=== PATIENT | male | born 1960 | race Caucasian/White ===

== ENCOUNTER 2020-01-14 12:01 | Emergency (ER) | payer MEDICARE, SELFPAY ==
[2020-01-14 12:18] VITALS: BP 127/90; PULSE 81; RESP 16; TEMP 36.8; O2SAT 98
--- NOTE | 2020-01-14 13:05 | ED.EXTPRO ---
HPI - Extremity Problem General Chief complaint: Extremity Injury, Lower Stated complaint: Left leg Swelling Time Seen by Provider: 01/14/20 12:58 Source: patient and RN notes reviewed Mode of arrival: ambulatory Limitations: no limitations History of Present Illness HPI Narrative: Patient presents today complaint of a 3-day history of left knee pain. Denies injury or trauma. Denies repetitive motions, but states he does do stair walking and squats to stay in shape. Denies numbness or tingling in the extremities. Pain does not increase with range of motion while he is sitting down. Pain slightly increases when he is walking. Currently rates his pain 7/10 and has been taking Tylenol without relief. He is unable to take ibuprofen due to chronic kidney disease. Reports he does feel some swelling in the posterior knee. MD Complaint: extremity pain Related Data Home Medications Medication Instructions Recorded Confirmed olanzapine 20 mg DAILY 04/29/19 04/29/19 pravastatin 40 mg DAILY 04/29/19 04/29/19 Allergies Allergy/AdvReac Type Severity Reaction Status Date / Time Penicillins Allergy Unknown RASH Verified 04/29/19 18:17 Review of Systems Review of Systems: Narrative: CONSTITUTIONAL: Denies body aches, fever, chills, or sweats. EYES: Denies visual changes, redness, or discharge. ENT: Denies rhinorrhea, congestion, sore throat, or otalgia. CARDIOVASCULAR: Denies chest pain, palpitations, or edema. RESPIRATORY: Denies cough or dyspnea. GASTROINTESTINAL: Denies abdominal pain, nausea, vomiting, or diarrhea. GENITOURINARY: Denies dysuria or hematuria. SKIN: Denies rash, itching, or wounds. MUSCULOSKELETAL: Denies back pain, or myalgia. + Left knee pain and swelling NEUROLOGIC: Denies headache, numbness, tingling, or weakness. PSYCH: Denies depression or anxiety. ON LICENSE OF [facility] Past Medical History Medical History (Updated 01/14/20 @ 13:27 by CARMEL Verduzco, ) Bipolar disorder Chronic kidney disease Social History Social History Smoking status: Never smoker Alcohol intake: never Gender identity (if verbalized by the patient): Male Comments At time of signature, I have reviewed and agree with nursing past medical, surgical, social and family history unless otherwise noted. Please see nursing chart for further information. There is no relevant family history pertinent to the presenting complaint Exam Narrative: Exam Narrative: GENERAL: Well-appearing, well-nourished, and in no acute distress. HEAD: Normocephalic, atraumatic. EYES: EOMI. No redness or drainage. Conjunctivae normal. ENT: Mucous membranes pink and moist. NECK: Normal AROM. CHEST: No respiratory distress. EXTREMITIES: Left knee: Mild tenderness to the upper lateral joint line without edema noted. Mild tenderness posteriorly with mild edema noted. No bony tenderness about the knee. No abnormal patellar movement. No patellar tendon tenderness. Distal sensation intact. Capillary refill normal. Color normal. Full AROM without increased pain. SKIN: Warm, dry, no rash. Capillary refill normal. Normal skin turgor. NEURO: No focal deficits. Alert and oriented x3. Gait steady. PSYCH: Normal affect. No signs of depression or anxiety. Course Vital Signs Vital signs: Vital Signs Temperature 98.3 F 01/14/20 12:18 Pulse Rate 81 01/14/20 12:18 Respiratory Rate 16 01/14/20 12:18 Blood Pressure 127/90 01/14/20 12:18 Pulse Oximetry 98 01/14/20 12:18 Temperature 98.3 F 01/14/20 12:18 Pulse Rate 81 01/14/20 12:18 Respiratory Rate 16 01/14/20 12:18 Blood Pressure 127/90 01/14/20 12:18 Pulse Oximetry 98 01/14/20 12:18 Reviewed. Pt has been instructed to follow up with his PCP regarding his elevated blood pressure today. MDM - Extremity (Nontraumatic) Differential Diagnosis Differential diagnosis: Likely other (Osteoarthritis, knee effusion, bu
== END 2020-01-14 13:13 | disposition home or self-care (01) ==
PROVIDERS: Emergency Provider Nurse Practitioner; PCP Family Medicine
DX: M17.12 Unilateral primary osteoarthritis, left knee (principal); E78.00 Pure hypercholesterolemia, unspecified; N18.9 Chronic kidney disease, unspecified
CPT/HCPCS: 29515; 99213; G0463

== ENCOUNTER 2022-12-27 09:04 | Emergency (ER) | payer MEDICARE, SELFPAY ==
--- NOTE | ~2022-12-27 | XR_ITS ---
EXAMINATION: XR knee LT min 4V DATE: 12/27/2022 09:42 INDICATION: Left knee pain. TECHNIQUE: 4 views of left knee were obtained. COMPARISON: Left knee radiographs 06/09/2015 FINDINGS: Bone alignment is normal. No fracture. There is mild tricompartmental osteoarthritis. No kn ee joint effusion. IMPRESSION: 1. Mild left knee osteoarthritis. Reviewed, dictated and finalized at location A.
--- NOTE | ~2022-12-27 | US_ITS ---
EXAMINATION:US venous doppler LE INDICATION:Left leg pain and swelling. History of DVT. TECHNIQUE: Multiple grayscale, color flow and Doppler images of the left lower extremity deep venous systems were obtained and reviewed. COMPARISON:Ultrasound dated 12/07/2021 FINDINGS: There is deep venous thrombosis of the left common femoral and femoral veins. The remainder of the left lower extremity veins are patent with normal flow and compressibility. IMPRESSION: 1: Deep venous thrombosis of the left common femoral and femoral veins. Reviewed, dictated and finalized at location B.
[2022-12-27 09:23] VITALS: BP 123/83; PULSE 75; RESP 18; TEMP 36.6; O2SAT 100
--- NOTE | 2022-12-27 10:07 | ED.LOWEXIN ---
HPI - Extremity Injury (Lower) General Chief Complaint: Extremity Injury, Lower Stated Complaint: left leg edema Time Seen by Provider: 12/27/22 09:27 Source: patient Mode of arrival: ambulatory Limitations: no limitations History of Present Illness HPI Narrative: This is a 62 year old male that presents to the ER for left leg swelling and pain. Ongoing over the last couple of days. Reports history of DVT and he was concerned that may be what was going on. Reports the pain is in his knee and radiates into his calf. No known recent injury or trauma. Denies fever, or erythema. Related Data Home Medications Medication Instructions Recorded Confirmed olanzapine 20 mg tablet 20 mg DAILY 04/29/19 04/29/19 pravastatin 40 mg tablet 40 mg DAILY 04/29/19 04/29/19 Allergies Allergy/AdvReac Type Severity Reaction Status Date / Time Penicillins Allergy Unknown RASH Verified 12/27/22 09:23 Review of Systems Review of Systems: CONSTITUTIONAL: Denies fever SKIN: Denies rash MUSCULOSKELETAL: Reports joint pain, and myalgia. NEUROLOGIC: Denies numbness All systems reviewed & are unremarkable except as noted in HPI and below PMFSH Past Medical History Medical History (Updated 12/27/22 @ 11:18 by Florence Hinojosa PA-C) Bipolar disorder Chronic kidney disease Family History Family History Other Family history of coronary artery disease Family history of osteoarthritis Hypertension Social History Social History Smoking status: Never smoker Alcohol intake: never Gender identity (if verbalized by the patient): Male Exam Narrative: GENERAL: Well-appearing, well-nourished, and in no acute distress. HEAD: Normocephalic, atraumatic. EYES: EOMI. CHEST: No respiratory distress. HEART: Regular rate EXTREMITIES: Normal range of motion. No erythema. Mild non-pitting edema to the left calf. Normal DP pulse. Normal sensation SKIN: Warm, dry, no rash. NEURO: No focal deficits. Alert and oriented x3. PSYCH: Normal mood and affect Course Course Emergency Course: Patient and family updated on work-up and agree with plan of care Consultations Consultation #1: Spoke with PCPs nurse who will inform provider of patient's DVT Date: 12/27/22 Vital Signs Vital signs: Vital Signs Temperature 97.8 F 12/27/22 09:23 Pulse Rate 75 12/27/22 09:23 Respiratory Rate 18 12/27/22 09:23 Blood Pressure 123/83 12/27/22 09:23 Pulse Oximetry 100 12/27/22 09:23 Oxygen Delivery Room Air 12/27/22 09:23 Temperature 97.8 F 12/27/22 09:23 Pulse Rate 75 12/27/22 09:23 Respiratory Rate 18 12/27/22 09:23 Blood Pressure 123/83 12/27/22 09:23 Pulse Oximetry 100 12/27/22 09:23 Oxygen Delivery Room Air 12/27/22 09:23 MDM - Extremity Injury (Lower) MDM Narrative Medical decision making narrative: Patient presents to the emergency department for left knee pain. Also reporting left lower extremity swelling and history of DVT. He is afebrile and nontoxic-appearing. He denies any chest pain or shortness of breath. Oxygen saturation is normal on room air. He is not tachycardic. Left knee x-ray shows mild osteoarthritis. The left lower extremity venous Doppler with evidence of DVT in the left common femoral and femoral veins. Patient will be started on Eliquis and instructed to have follow-up with primary provider. He was given warnings to return to the ER Differential Diagnosis Differential diagnosis: Likely acute internal derangement of knee and other (DVT, Feliciano's cyst, osteoarthritis) Imaging Data Radiologist's impression: ITS Impressions Knee X-Ray 12/27/22 09:52 IMPRESSION: 1. Mild left knee osteoarthritis. Venous Doppler Study 12/27/22 10:47 IMPRESSION: 1: Deep venous thrombosis of the left common femoral and femoral veins. Critical
[2022-12-27] MEDS: ACETAMINOPHEN 500 MG TABLET 1000 MG PO (10:14)
[2022-12-27 12:29] VITALS: BP 148/90; PULSE 73; RESP 20; TEMP 36.8; O2SAT 96
== END 2022-12-27 12:32 | disposition home or self-care (01) ==
PROVIDERS: Emergency Provider Physician Assistant; PCP Family Medicine
DX: I82.412 Acute embolism and thrombosis of left femoral vein (principal)
CPT/HCPCS: 73564; 93971; 99283; A9270

== ENCOUNTER 2023-01-14 12:01 | Emergency (ER) | payer MEDICARE, SELFPAY ==
[2023-01-14 12:12] VITALS: BP 109/76; PULSE 89; RESP 18; TEMP 36.6; O2SAT 100
--- NOTE | 2023-01-14 13:08 | ED.DENTAL ---
HPI - Dental/Oral General Chief complaint: Dental/Oral Stated complaint: face swollen left side Time Seen by Provider: 01/14/23 13:03 Source: patient and RN notes reviewed Mode of arrival: ambulatory Limitations: no limitations History of Present Illness HPI Narrative: Patient presents today complaining of left upper dental pain and facial swelling was present when he woke up this morning. Currently rates his pain 7/10 and has been taking Tylenol with mild relief. States he does have a dentist but has not yet called to make an appointment. Related Data Home Medications Medication Instructions Recorded Confirmed olanzapine 20 mg tablet 20 mg DAILY 04/29/19 04/29/19 pravastatin 40 mg tablet 40 mg DAILY 04/29/19 04/29/19 famotidine 20 mg tablet mg 01/14/23 tamsulosin 0.4 mg capsule mg PO 01/14/23 Allergies Allergy/AdvReac Type Severity Reaction Status Date / Time Penicillins Allergy Unknown RASH Verified 01/14/23 12:11 Review of Systems Review of Systems: CONSTITUTIONAL: Denies body aches, fever, chills, or sweats. EYES: Denies visual changes, redness, or discharge. ENT: Denies rhinorrhea, congestion, sore throat, or otalgia.+ tooth pain and facial swelling CARDIOVASCULAR: Denies chest pain, palpitations, or edema. RESPIRATORY: Denies cough or dyspnea. GASTROINTESTINAL: Denies abdominal pain, nausea, vomiting, or diarrhea. GENITOURINARY: Denies dysuria or hematuria. SKIN: Denies rash, itching, or wounds. MUSCULOSKELETAL: Denies back pain, joint pain, or myalgia. NEUROLOGIC: Denies headache, numbness, tingling, or weakness. PSYCH: Denies depression or anxiety. [facility] Past Medical History Medical History Bipolar disorder Chronic kidney disease Family History Family History Other Family history of coronary artery disease Family history of osteoarthritis Hypertension Social History Social History Smoking status: Never smoker Alcohol intake: never Gender identity (if verbalized by the patient): Male Comments At time of signature, I have reviewed and agree with nursing past medical, surgical, social and family history unless otherwise noted. Please see nursing chart for further information. There is no relevant family history pertinent to the presenting complaint Exam Narrative: GENERAL: Well-appearing, well-nourished, and in no acute distress. HEAD: Normocephalic, atraumatic. EYES: EOMI. No redness or drainage. Conjunctivae normal. ENT: Mucous membranes pink and moist. Scattered dental caries. Many teeth are broken off at the gumline and are brown in color. Gumline adjacent to teeth 9 through 11 is erythematous and mildly swollen. No obvious periapical abscess. Patient has [id number] left facial swelling. No trismus. NECK: Normal AROM. CHEST: No respiratory distress. EXTREMITIES: Normal range of motion. No edema. SKIN: Warm, dry, no rash. Capillary refill normal. Normal skin turgor. NEURO: No focal deficits. Alert and oriented x3. Gait steady. PSYCH: Normal affect. No signs of depression or anxiety. Course Course Level of Care: Express Care Visit Vital Signs Vital signs: Vital Signs Temperature 98 F 01/14/23 12:12 Pulse Rate 89 01/14/23 12:12 Respiratory Rate 18 01/14/23 12:12 Blood Pressure 109/76 01/14/23 12:12 Pulse Oximetry 100 01/14/23 12:12 Oxygen Delivery Room Air 01/14/23 12:12 Temperature 98 F 01/14/23 12:12 Pulse Rate 89 01/14/23 12:12 Respiratory Rate 18 01/14/23 12:12 Blood Pressure 109/76 01/14/23 12:12 Pulse Oximetry 100 01/14/23 12:12 Oxygen Delivery Room Air 01/14/23 12:12 Reviewed MDM - Dental/Oral MDM Narrative Medical decision making narrative: Will treat patient with a course of clindamycin and a short cour
== END 2023-01-14 13:16 | disposition home or self-care (01) ==
PROVIDERS: Emergency Provider Nurse Practitioner; PCP Family Medicine
DX: K04.7 Periapical abscess without sinus (principal); N18.9 Chronic kidney disease, unspecified; Z79.899 Other long term (current) drug therapy
CPT/HCPCS: 99213; G0463

== ENCOUNTER 2023-03-24 10:31 | Emergency (ER) | payer MEDICARE, SELFPAY ==
[2023-03-24 10:49] VITALS: BP 111/75; PULSE 101; RESP 16; TEMP 36.4; O2SAT 99
--- NOTE | 2023-03-24 11:06 | ED.DENTAL ---
HPI - Dental/Oral General Chief complaint: Dental/Oral Stated complaint: left side tooth pain Source: patient, RN notes reviewed and old records reviewed Mode of arrival: ambulatory Limitations: no limitations History of Present Illness HPI Narrative: 62-year-old male patient presents to Express Care with complaint of left upper dental pain with facial swelling this started yesterday. Patient states has history of dental issues but is not scheduled to see the dentist until April. Patient has not taken any medications. MD Complaint: tooth pain Location: Tooth # (14) Severity: moderate Related Data Home Medications Medication Instructions Recorded Confirmed olanzapine 20 mg tablet 20 mg DAILY 04/29/19 03/24/23 pravastatin 40 mg tablet 40 mg DAILY 04/29/19 03/24/23 famotidine 20 mg tablet mg 01/14/23 tamsulosin 0.4 mg capsule 0.4 mg PO EVERY OTHER DAY 01/14/23 03/24/23 Allergies Allergy/AdvReac Type Severity Reaction Status Date / Time Penicillins Allergy Unknown RASH Verified 03/24/23 10:52 Review of Systems Constitutional: Constitutional: Reports no additional constitutional complaints, Denies chills and Denies fever(s) Eyes: Eyes: Reports no additional eye complaints ENT: Reports as per HPI, Reports dental pain, Reports facial pain and Reports mouth pain Cardiovascular: Cardiovascular: Reports no additional cardiovascular complaints Respiratory: Respiratory: Reports no additional respiratory complaints Neurologic: Reports system reviewed and no additional complaints, except as documented PMFSH Past Medical History Medical History Bipolar disorder Chronic kidney disease Family History Family History Other Family history of coronary artery disease Family history of osteoarthritis Hypertension Social History Social History Smoking status: Never smoker Alcohol intake: never Gender identity (if verbalized by the patient): Male Comments At the time of my signature, I reviewed and agree with the nursing past medical, surgical, social, and family history. There is no relevant family history pertinent to the patient complaint. Exam Const: General: cooperative, healthy appearing, no acute distress and well nourished Nutritional Appearance: well nourished Orientation/consciousness: patient oriented x3 Limitations: no limitations HENMT: Head: normal to inspection and normocephalic Ears: external ears normal, TM's normal bilaterally, mastoids normal and Abnormal EAC present Face/Nose/Sinus: edema ( left facial swelling noted) Face and sinus: normal facial exam, no ecchymosis and no erythema Mouth: Yes Normal oral and palatal mucosa present, Yes oropharynx normal and Yes moist mucous membranes Teeth and gingiva: abnormal tooth and associated gingiva, caries ( patient has multiple broken teeth and decay) and gingiva abnormal edematous, diffusely erythematous and tender Throat: posterior oropharynx normal, tonsils normal, uvula midline and no uvular edema Eyes: General: appearance normal, both eyes and all related structures Sclera: sclerae normal Pupils: Equal, round and reactive pupils present Resp: Effort & Inspection: normal respiratory effort, able to speak in complete sentences, no audible wheezes, no cough, no respiratory distress and no retractions Auscultation: clear to auscultation bilaterally, no crackles, no rales, no rhonchi and no wheezes Cardio: Rate: regular rate Rhythm: regular rhythm Skin: General skin exam: normal color and no rashes or lesions noted Neuro: General: patient oriented x3 Cranial nerves: Yes Equal, round and reactive pupils present Psych: Appearance: grossly normal Course Course Emergency Course: Some parts of this dictation were generated by voice recognition software an
== END 2023-03-24 11:20 | disposition home or self-care (01) ==
PROVIDERS: Emergency Provider Registered Nurse; PCP Family Medicine
DX: K04.7 Periapical abscess without sinus (principal); N18.9 Chronic kidney disease, unspecified
CPT/HCPCS: 99213; G0463

== ENCOUNTER 2023-08-13 09:57 | Emergency (ER) | payer MEDICARE, SELFPAY ==
[2023-08-13] VITALS (20 sets, daily range): BP systolic 116–143; BP diastolic 83–96; PULSE 55–94; RESP 11–23; TEMP 36.4; O2SAT 98–100
--- NOTE | ~2023-08-13 | XR_ITS ---
XR chest 2V DATE: 08/13/2023 11:32 INDICATION: Hemoptysis TECHNIQUE: AP and lateral views COMPARISON: August 13, 2023 CTA chest 06/30/2015 2 view chest FINDINGS: Normal heart size. No hilar or mediastinal enlargement. The lungs appear mildly hyperinflated but clear of infiltrate or consolidation. No pleural effusion o r pulmonary vascular congestion or pneumothorax. Included skeletal structures are unremarkable. IMPRESSION: No active cardiopulmonary disease Reviewed, dictated and finalized at location A.
--- NOTE | ~2023-08-13 | US_ITS ---
US venous doppler LE DATE: 08/13/2023 12:07 INDICATION: Left leg pain. History of deep venous thrombosis. TECHNIQUE: Real-time and color flow imaging and Doppler analysis of the veins of the left or extremit y COMPARISON: 12/27/2022 venous duplex examination of the left lower extremity FINDINGS: There is thrombus within the left greater saphenous vein. There is likely chronic thrombus identified in the left common femoral and femoral and popliteal veins, with incomplete compression, w ith loss of phasicity. Normal flow in the posterior tibial and peroneal veins. IMPRESSION: Partial thrombosis, possibly chronic, involving left greater saphenous, common femoral, f emoral and popliteal veins Reviewed, dictated and finalized at Location A. Reviewed, dictated and finalized at location A. IMPRESSION: Partial thrombosis, possibly chronic, involving left greater saphen ous, common femoral, femoral and popliteal veins
--- NOTE | ~2023-08-13 | CT_ITS ---
EXAMINATION: CTA chest PE protocol DATE: 08/13/2023 11:27 INDICATION: Hemoptysis. History of blood clots. TECHNIQUE: Computed tomography angiography (CTA) of the chest was performed with 100 mL Omnipaque-350 intravenous contrast timed to evaluate the pulmonary arteries. Coronal maximum intensity projection 3D-reconstructions were created by the technologist. Automated exposure control and iterative reconst ruction technique were employed. Exam dose: 175.20 mGy-cm total exam DLP. COMPARISON: 06/30/2015 AP and lateral chest FINDINGS: There is diagnostic contrast enhancement of the pulmonary arteries and no evidence of pulmo nary embolism. No thoracic aortic aneurysm or dissection. Normal heart size. No pericardial or pleural effusion. No hilar or mediastinal mass lesion or lymphadenopathy. No pulmonary infiltrate or consolidation or pulmonary mass lesion. No suspicious osteolytic or osteoblastic lesions. IMPRESSION: No evidence of pulmonary embolism Reviewed, dictated and finalized at Location A. Reviewed, dictated and finalized at location A.
--- NOTE | 2023-08-13 10:27 | ECG_ITS ---
SEE SCANNED COPY FOR CONFIRMED REPORT MTDD
[2023-08-13 10:47] LABS: Basophils Absolute Auto 0.1 K/mm3 (0.0-0.1); Basophils Percent Auto 1.4 % (0.2-1.2); Eosinophils Percent Auto 0.9 % (0-4.4); Hematocrit 40.7 % (42.0-52.0); Hemoglobin 13.4 g/dL (14.0-18.0); Immature Granulocyte Absolute 0.01 K/mm3 (0.00-0.031); Immature Granulocyte Percent A 0.2 % (0-0.5); Lymphocytes Absolute Auto 1.15 K/mm3 (0.9-3.2); Lymphocytes Percent Auto 25.9 % (18.3-44.2); Mean Corpuscular HGB Conc 32.9 g/dl (32-36); Mean Corpuscular Hemoglobin 28.8 pg (26-34); Mean Corpuscular Volume 87.5 fl (80-100); Mean Platelet Volume 9.5 fl (7.4-10.4); Monocytes Absolute Auto 0.4 K/mm3 (0.1-0.6); Monocytes Percent Auto 8.8 % (2.6-8.5); Neutrophils Absolute Auto 2.8 K/mm3 (1.3-6.7); Neutrophils Percent Auto 62.8 % (45.5-73.1); Platelet Count Result 254 k/mm3 (150-375); Red Blood Count 4.65 M/mm3 (4.6-6.20); Red Cell Distribution Width 13.8 % (11.5-14.5); White Blood Count 4.4 K/mm3 (4.5-10.0)
[2023-08-13 10:57] LABS: Alanine Aminotransferase 11 U/L (6-50); Albumin Level 4.7 g/dL (3.5-5.1); Alkaline Phosphatase 82 U/L (38-126); Anion Gap 10 mmol/L (4-12); Aspartate Amino Transferase 16 U/L (17-59); Blood Urea Nitrogen 10 mg/dL (9-20); Calcium 9.8 mg/dL (8.4-10.2); Carbon Dioxide 21 mmol/L (22-30); Chloride 109 mmol/L (98-107); Estimated CRCL calculation 45 ml/min; Estimated Glomerular Filt Rate 56; Glucose 113 mg/dL (65-110); Potassium 3.5 mmol/L (3.4-5.0); Sodium 140 mmol/L (137-145)
--- NOTE | 2023-08-13 11:11 | ED.GENADULT ---
HPI - General Adult General Chief complaint: Unspecified Stated complaint: cough blood, weakness Time Seen by Provider: 08/13/23 10:14 History of Present Illness HPI narrative: 62-year-old male presents to the emergency department for evaluation after some hemoptysis this morning. Patient states he had a couple episodes of coughing and did notice some small drops of blood after he coughed. Patient states the last time he coughed with hemoptysis was approximately 9:00 a.m.. Patient was started on Eliquis in April due to a left lower extremity DVT. Patient states since starting Eliquis his left leg did feel improved over last few days he has had increased left lower leg pain. Related Data Home Medications Medication Instructions Recorded Confirmed olanzapine 20 mg tablet 20 mg DAILY 04/29/19 03/24/23 pravastatin 40 mg tablet 40 mg DAILY 04/29/19 03/24/23 famotidine 20 mg tablet mg 01/14/23 tamsulosin 0.4 mg capsule 0.4 mg PO EVERY OTHER DAY 01/14/23 03/24/23 Allergies Allergy/AdvReac Type Severity Reaction Status Date / Time Penicillins Allergy Unknown RASH Verified 08/13/23 10:07 Review of Systems Review of Systems: All systems reviewed & are unremarkable except as noted in HPI and below PMFSH Past Medical History Medical History Bipolar disorder Chronic kidney disease Family History Family History Other Family history of coronary artery disease Family history of osteoarthritis Hypertension Social History Social History Smoking status: Never smoker Alcohol intake: never Gender identity (if verbalized by the patient): Male Exam Narrative: APPEARANCE: Well appearing, no pain, no distress, well-nourished. HEAD: normocephalic, atraumatic. EYES: PERRLA/EOMI, conjunctivae clear. NOSE: Normal no drainage EARS:TMS clear with good light reflex. THROAT: Pharynx clear, no exudate. NECK: Supple. No adenopathy, no masses. RESPIRATORY: Airway patent, respirations nonlabored. Clear to auscultation bilaterally, no rales, rhonchi, wheezing. CARDIOVASCULAR: Regular rate and rhythm without murmurs rubs or gallops. ABDOMINAL: Soft, nontender, nondistended, normal bowel sounds MUSCULOSKELETAL: Thigh tenderness to palpation, no leg erythema or edema NEURO: Alert. Cranial nerves II through XII intact. Good gait. Good coordination SKIN: Warm, dry. Normal Color Course Vital Signs Vital signs: Vital Signs Temperature 97.5 F L 08/13/23 10:04 Pulse Rate 72 08/13/23 10:04 Respiratory Rate 17 08/13/23 10:04 Blood Pressure 133/85 08/13/23 10:04 Pulse Oximetry 100 08/13/23 10:04 Oxygen Delivery Room Air 08/13/23 10:04 Temperature 97.5 F L 08/13/23 10:04 Pulse Rate 74 08/13/23 13:49 Respiratory Rate 18 08/13/23 13:33 Blood Pressure 128/92 H 08/13/23 13:49 Pulse Oximetry 100 08/13/23 13:33 Oxygen Delivery Room Air 08/13/23 10:04 Medical Decision Making [facility] Narrative Medical decision making narrative: 62-year-old male presenting to the emergency department for evaluation of left leg pain and some hemoptysis. Patient has not have any hemoptysis since 9:00 a.m.. CTA showed no active bleeding and no evidence of pulmonary embolism. Patient is afebrile with no leukocytosis and a stable hemoglobin of 13.4, patient has no acute abnormalities on his CMP patient was negative for influenza RSV and for COVID. Ultrasound of the left leg does show some chronic DVT. Patient family updated the results of the workup patient states he feels improved. Patient's orthostatic vitals were positive, patient was treated with a L of normal saline does feel improved. Patient was able to ambulate and denies any lightheaded or dizziness. Differential Diagnosis Differential Diagnosis: Acute DVT, chronic DVT, pulmon
[2023-08-13 12:51] LABS: Influenza A QL RT-PCR Negative (Negative); Influenza B QL RT-PCR Negative (Negative); RSV RNA, RT-PCR Negative (Negative); SARS-CoV-2 RNA PCR Negative (Negative)
[2023-08-13] MEDS: SODIUM CHLORIDE 0.9% IV 1,000 ML 999 ML IV CONT (13:00)
== END 2023-08-13 14:08 | disposition home or self-care (01) ==
PROVIDERS: Emergency Provider Emergency Medicine; PCP Family Medicine
DX: R04.2 Hemoptysis (principal); I95.1 Orthostatic hypotension; I82.512 Chronic embolism and thrombosis of left femoral vein; I82.532 Chronic embolism and thrombosis of left popliteal vein; I82.592 Chronic embolism and thrombosis of other specified deep vein of left lower extremity; Z20.822 Contact with and (suspected) exposure to COVID-19; N18.9 Chronic kidney disease, unspecified; F31.9 Bipolar disorder, unspecified; Z79.01 Long term (current) use of anticoagulants
CPT/HCPCS: 36415; 71046; 71275; 80053; 85025; 87637; 93005; 93971; 96360; 99284; J7030; Q9967

== ENCOUNTER 2024-07-14 12:08 | Emergency (ER) | payer MEDICARE, SELFPAY ==
[2024-07-14] VITALS (41 sets, daily range): BP systolic 126–164; BP diastolic 78–125; PULSE 52–74; RESP 13–25; TEMP 36.6; O2SAT 97–100
--- NOTE | ~2024-07-14 | CT_ITS ---
EXAMINATION: CT brain wo con DATE: 07/14/2024 12:26 INDICATION: Facial weakness. TECHNIQUE: Computed tomography (CT) of the head was performed without intravenous contrast. The mA wa s adjusted according to patient size. Iterative reconstruction technique was employed. The dose-lengt h product was 681.00 mGy-cm. COMPARISON: Head CT 06/06/2015 FINDINGS: There is no intracranial hemorrhage, acute infarction, or abnormal intracranial mass lesion . The ventricles are normal in size. The orbits are normal. There is mild mucosal thickening in the p aranasal sinuses. There are changes of bilateral mastoidectomies. There is extensive dental disease. IMPRESSION: 1. Normal brain. Reviewed, dictated and finalized at location A. IMPRESSION: 1. Normal brain.
--- NOTE | ~2024-07-14 | CT_ITS ---
EXAMINATION: CTA brain carotid DATE: 07/14/2024 12:27 INDICATION: Facial weakness. TECHNIQUE: Computed tomographic angiography (CTA) of the head was performed with 100 mL Omnipaque-350 intravenous contrast. CTA of the neck was performed with intravenous contrast. Automated exposure co ntrol and iterative reconstruction technique were employed. The dose-length product was 946.92 mGy-cm . Maximum intensity projection and volume rendered 3D-reconstructions were created by the [employer] t on a separate workstation. COMPARISON: Head CT 07/14/2024 FINDINGS: HEAD CTA: There is no intracranial hemorrhage, acute infarction, or abnormal intracranial mass lesion . The ventricles are normal in size. The orbits are normal. There is extensive dental disease. There is mild mucosal thickening in the paranasal sinuses. There are bilateral mastoidectomies. Left verteb ral artery is dominant. There is no significant stenosis of basilar artery or the posterior cerebral arteries. There is no significant stenosis of the intracranial internal carotid arteries or anterior or middle cerebral arteries. Anterior communicating artery is normal. The posterior communicating art eries are normal. There is no aneurysm. NECK CTA: There are no pathologically enlarged lymph nodes. There is no significant stenosis of the v ertebral arteries. There is mild plaque in the proximal internal carotid arteries. There is 0% stenos is of the proximal right internal carotid artery relative to normal distal artery lumen diameter (ANN-MARIE CET criteria). There is 0% stenosis of the proximal left internal carotid artery relative to normal d istal artery lumen diameter. There is severe cervical spondylosis. IMPRESSION: 1. Normal brain. No aneurysm or significant intracranial arterial stenosis 2. 0% stenosis of the proximal internal carotid arteries relative to normal distal artery lumen diame ters (NASCET criteria). Reviewed, dictated and finalized at location A. IMPRESSION: 1. Normal brain. No aneurysm or significant intracranial arterial stenosis 2. 0% stenosis of the proximal internal carotid arteries relative to normal dis ankita artery lumen diameters (NASCET criteria).
--- NOTE | ~2024-07-14 | XR_ITS ---
EXAMINATION: XR chest 1V portable DATE: 07/14/2024 12:35 INDICATION: Facial weakness. TECHNIQUE: A single frontal view of the chest was obtained. COMPARISON: Chest 2 views 08/13/2023 FINDINGS: There is no pneumonia, pleural effusion, or pneumothorax. The heart size is normal. IMPRESSION: 1. No acute cardiopulmonary disease. Reviewed, dictated and finalized at location A.
--- OUTSIDE RECORDS SUMMARY | 2024-07-14 12:11 | XMS_ITS ---
Author Organization [facility] Office Address [address] [place] [address] Care Team Providers Care Heavy Equipment Mechanic Name Role Phone JacksonHraiHiren Unavailable [phone] MEDICATIONS Medication SIG (Take, Route, Frequency, Duration) Notes Start Date End Date Status Levothyroxine Sodium 25 MCG 1 tablet in the morning on an empty stomach Orally Once a day for 90 days 07/04/2024 Active SOCIAL HISTORY Sex Assigned At : Social History Observation Description Sex Assigned At Male Encounters Encounter Location Date Provider Diagnosis [facility] [address] [facility] [address] [place] [address] 07/04/2024 Hiren Jackson PLAN OF TREATMENT Medication Medication Name Sig Start Date Stop Date Notes Levothyroxine Sodium 25 MCG 1 tablet in the morning on an empty stomach Orally Once a day for 90 days 07/04/2024 Next Appt Details Provider Name:Hiren Jackson , 09/12/2024 02:30:00 PM, [address] [facility], [facility] [address], [place], [address], Progress Notes * JACOB VIVIANADOB:1960 (6 3 yo M)Acc No.[id number]:07/04/2024 Patient: VIVIANA JAMES :1960 Age:63 Y Sex:Male Address:[address] [place] [address], [id number] * Refills Start Levothyroxine Sodium Tablet, 25 MCG, Orally, 90 Tablet, 1 tablet in the morning on an empty stomach, Once a day, 90 days, Refills=3 * * Date:
--- OUTSIDE RECORDS SUMMARY | 2024-07-14 12:12 | XMS_ITS | Patient Health Record ---
Author Organization [facility] Office Address [address] [place] [address] Care Team Providers Care Locomotive Oiler Name Role Phone Hiren Jackson Unavailable [phone] REASON FOR REFERRAL No Information MEDICATIONS Medication SIG (Take, Route, Frequency, Duration) Notes Start Date End Date Status Potassium Chloride ER 20 MEQ TAKE 1 TABL ET BY MOUTH EVERY DAY WITH FOOD FOR 90 DAYS for 90 Active Tamsulosin HCl 0.4 MG TAKE 1 CAPSULE BY MOUTH TWICE A DAY for 90 Active Levothyroxine Sodium 25 MCG 1 tablet in the morning on an empty stomach Orally Once a day for 90 days 07/04/2024 Active SOCIAL HISTORY Sex Assigned At : Social History Observation Description Sex Assigned At Male PROBLEMS Problem Type ICD Code Onset Dates Problem Status W/U Status Risk SNOMED Code Notes Problem Secondary hyperparathyroid ism, not elsewhere classified (E21.1) Active confirmed Secondary hyperparathyroidism (09957537) Problem Vitamin D deficiency, unspecified (E55.9) Active confirmed Vitamin D defic iency (60054023) Problem Bipolar disorder, unspecified (F31.9) Active confirmed Bipolar disorde r (24011023) Problem Essential (primary) hypertension (I10) Active confirmed Essential hypertension (27160401) Problem 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) Active confirmed Renovascular hypertension (311883235) Problem Renal osteodystrophy (N25.0) Active confirmed Renal osteodyst rophy (12613192) Problem Proteinuria, unspecified (R80.9) Active confirmed Proteinuria (40242160) Problem Abnormal results of thyroid function studies (R94.6) Active confirmed Thyroid functio n tests abnormal (109359147) Problem Chronic kidney disease, stage 3a (N18.31) Active confirmed Chronic kidney disease stage 3A (disorder) (225987128) Encounters Encounter Location Date Provider Diagnosis [facility] [address] [address] 08/24/2023 Hiren Jackson Chronic kidney disea se, stage 3a N18.31 ; Essential (primary) hypertension I10 ; Proteinuria, unspecified R80.9 ; Renal osteodystrophy N25.0 ; Secondary hyperparathyroidism, not elsewhere classified E21.1 and Parkinson's disease G20 [place] [address] [place] [address] 11/23/2023 Hiren Jackson Chronic kidney disea se, stage 3a N18.31 ; Essential (primary) hypertension I10 ; Proteinuria, unspecified R80.9 ; Renal osteodystrophy N25.0 ; Secondary hyperparathyroidism, not elsewhere classified E21.1 and Parkinson's disease G20 [place] [address] [address] 01/25/2024 Hiren Jackson Chronic kidney disea se, stage 3a N18.31 ; Essential (primary) hypertension I10 ; Proteinuria, unspecified R80.9 ; Renal osteodystrophy N25.0 ; Secondary hyperparathyroidism, not elsewhere classified E21.1 and Parkinson's disease G20 [place] [address] [address] 04/04/2024 Hiren Jackson Stage 3 chronic kidn ey disease N18.30 ; Hypertension secondary to other renal disorders I15.1 and Vitamin D deficiency, unspecified E55.9 [place] [address] [address] 07/04/2024 Hiren Jackson Chronic kidney disea se, stage 3a N18.31 ; Essential (primary) hypertension I10 ; Proteinuria, unspecified R80.9 ; Renal osteodystrophy N25.0 ; Secondary hyperparathyroidism, not elsewhere classified E21.1 ; Hypertension secondary to other renal disorders I15.1 ; Vitamin D deficiency, unspecified E55.9 ; Bipolar disorder, unspecified F31.9 and Abnormal results of thyroid function studies R94.6 [facility] [address] [place] [address] 07/04/2024 Hiren Jackson [facility] [address] [place] [address] 08/24/2023 Hiren MILIAN Encounter Date Diagnosis Assessment Notes Treatment Notes Treatment Clinical Notes Section Notes 08/24/2023 Chronic kidney disease, stage 3a (ICD-10 - N18.31) 11/23/2023 Chronic kidney disease, stage 3a (ICD-10 - N18.31) 04/04/2024 Hypertension secondary to other renal disorders (ICD-10 - I15.1) 04/04/2024 Stage 3 chronic kidney disease (ICD-10 - N18.30) 01/25/2024 Chronic kidney disease, stage 3a (ICD-10 - N18.31) 07/04/2024 Chronic kidney disease, stage 3a (ICD-10 - N18.31) 04/04/2024 Vitamin D deficiency, unspecified (ICD-10 - E55.9) 07/04/2024 Essential (primary) hypertension (ICD-10 - I10) 01/25/2024 Essential (primary) hypertension (ICD-10 - I10) 11/23/2023 Essential (primary) hypertension (ICD-10 - I10) 08/24/2023 Essential (primary) hypertension (ICD-10 - I10) 08/24/2023 Proteinuria, unspecified (ICD-10 - R80.9) 11/23/2023 Proteinuria, unspecified (ICD-10 - R80.9) 01/25/2024 Proteinuria, unspecified (ICD-10 - R80.9) 07/04/2024 Proteinuria, unspecified (ICD-10 - R80.9) 07/04/2024 Renal osteodystrophy (ICD-10 - N25.0) 11/23/2023 Renal osteodystrophy (ICD-10 - N25.0) 01/25/2024 Renal osteodystrophy (ICD-10 - N25.0) 08/24/2023 Renal osteodystrophy (ICD-10 - N25.0) 11/23/2023 Secondary hyperparathyroidism , not elsewhere classified (ICD-10 - E21.1) 08/24/2023 Secondary hyperparathyroidism , not elsewhere classified (ICD-10 - E21.1) 01/25/2024 Secondary hyperparathyroidism , not elsewhere classified (ICD-10 - E21.1) 07/04/2024 Secondary hyperparathyroidism , not elsewhere classified (ICD-10 - E21.1) 07/04/2024 Hypertension secondary to other renal disorders (ICD-10 - I15.1) 01/25/2024 Parkinson's disease (ICD-10 - G20) 08/24/2023 Parkinson's disease (ICD-10 - G20) 11/23/2023 Parkinson's disease (ICD-10 - G20) 07/04/2024 Vitamin D deficiency, unspecified (ICD-10 - E55.9) 07/04/2024 Bipolar disorder, unspecified (ICD-10 - F31.9) 07/04/2024 Abnormal results of thyroid function studies (ICD-10 - R94.6) PLAN OF TREATMENT Next Appt Details Provider Name:Hiren Jackson , 09/12/2024 02:30:00 PM, [address] [facility] [address], [address],
--- OUTSIDE RECORDS SUMMARY | 2024-07-14 12:12 | XMS_ITS ---
Author Organization [facility] Office Address [address] [place] [address] Care Team Providers Care Manager Steel Name Role Phone ManuelMaríaHiren Unavailable [phone] MEDICATIONS Medication SIG (Take, Route, Frequency, Duration) Notes Start Date End Date Status Potassium Chloride ER 20 MEQ 1 tablet with food Orally Once a day for 90 days 08/24/2023 05/19/2024 Active Tamsulosin HCl 0.4 MG TAKE 1 CAPSULE BY MOUTH TWICE A DAY for 90 Active SOCIAL HISTORY Sex Assigned At : Social History Observation Description Sex Assigned At Male PROBLEMS Problem Type ICD Code Onset Dates Problem Status W/U Status Risk SNOMED Code Notes Problem 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) Active confirmed Renovascular hypertension (682712097) Problem Vitamin D deficiency, unspecified (E55.9) Active confirmed Vitamin D deficiency (53098535) Encounters Encounter Location Date Provider Diagnosis [place] [facility] [address] [facility] [address] [place] [address] 04/04/2024 Hiren Jackson Stage 3 chronic kidn ey disease N18.30 ; Hypertension secondary to other renal disorders I15.1 and Vitamin D deficiency, unspecified E55.9 ASSESSMENTS Encounter Date Diagnosis Assessment Notes Treatment Notes Treatment Clinical Notes Section Notes 04/04/2024 Stage 3 chronic kidney disease (ICD-10 - N18.30) 04/04/2024 Hypertension secondary to other renal disorders (ICD-10 - I15.1) 04/04/2024 Vitamin D deficiency, unspecified (ICD-10 - E55.9) PLAN OF TREATMENT Next Appt Details Provider Name:Hiren Jackson , 09/12/2024 02:30:00 PM, [address] [facility], [address], [place], [address], Progress Notes * KYLIE JAMES:1960 ([age] yo M)Acc No.[id number]:04/04/2024 Progress Notes Patient: VIVIANA JAMES Provider: MD KRIS, Jeanette.Ruth.C.P, F.A.S.N. :1960 Age:63 Y Sex:Male Date:04/04/2024 Address:[address] [place] [address] Subjective: * Chief Complaints: * * Medical History: * Medications: Taking Potassium Chloride ER 20 MEQ Tablet Extended Release 1 tablet with food Orally Once a day , stop date 05/19/2024, Taking Tamsulosin HCl 0.4 MG Capsule TAKE 1 CAPSULE BY MOUTH TWICE A DAY Objective: Assessment: * Assessment: 1. Stage 3 chronic kidney disease - N18.30 (Primary) 2. Hypertension secondary to other renal disorders - I15.1 3. Vitamin D deficiency, unspecified - E55.9 Plan: * Treatment: * Billing Information: * Visit Code: [id number] Office Visit, Est Pt., Level 4. * Procedure Codes: * Sign off status: Pending * Provider: MD KRIS, Jeanette.Ruth.C.P, F.A.S.N. Date: 04/04/2024
--- OUTSIDE RECORDS SUMMARY | 2024-07-14 12:12 | XMS_ITS ---
Author Organization [facility] Address [address] [place] [address] Care Team Providers Care Rn Oncology Clinical Name Role Phone ManuelHariHiren Unavailable [phone] SOCIAL HISTORY Sex Assigned At : Social History Observation Description Sex Assigned At Male PROBLEMS Problem Type ICD Code Onset Dates Problem Status W/U Status Risk SNOMED Code Notes Problem Bipolar disorder, unspecified (F31.9) Active confirmed Bipolar disorder (27612783) Problem Abnormal results of thyroid function studies (R94.6) Active confirmed Thyroid function tests abnormal (069427908) Encounters Encounter Location Date Provider Diagnosis [place] [facility] 2043 [facility] [address] [place] [address] 07/04/2024 Hiren Jackson Chronic kidney disea se, stage 3a N18.31 ; Essential (primary) hypertension I10 ; Proteinuria, unspecified R80.9 ; Renal osteodystrophy N25.0 ; Secondary hyperparathyroidism, not elsewhere classified E21.1 ; Hypertension secondary to other renal disorders I15.1 ; Vitamin D deficiency, unspecified E55.9 ; Bipolar disorder, unspecified F31.9 and Abnormal results of thyroid function studies R94.6 ASSESSMENTS Encounter Date Diagnosis Assessment Notes Treatment Notes Treatment Clinical Notes Section Notes 07/04/2024 Chronic kidney disease, stage 3a (ICD-10 - N18.31) 07/04/2024 Essential (primary) hypertension (ICD-10 - I10) 07/04/2024 Proteinuria, unspecified (ICD-10 - R80.9) 07/04/2024 Renal osteodystrophy (ICD-10 - N25.0) 07/04/2024 Secondary hyperparathyroidism , not elsewhere classified (ICD-10 - E21.1) 07/04/2024 Hypertension secondary to other renal disorders (ICD-10 - I15.1) 07/04/2024 Vitamin D deficiency, unspecified (ICD-10 - E55.9) 07/04/2024 Bipolar disorder, unspecified (ICD-10 - F31.9) 07/04/2024 Abnormal results of thyroid function studies (ICD-10 - R94.6) PLAN OF TREATMENT Next Appt Details Provider Name:Hiren Manuel , 09/12/2024 02:30:00 PM, 2043 [facility], [facility], [place], [address], Progress Notes * VIVIANA JAMESDOB:1960 ([age] yo M)Acc No.[id number]:07/04/2024 Progress Notes Patient: VIVIANA JAMES Provider: MD KRIS, F.A.C.P, F.A.S.N. :1960 Age:63 Y Sex:Male Date:07/04/2024 Address:[address] [place] [address] Subjective: * Chief Complaints: * * Medical History: Objective: Assessment: * Assessment: 1. Chronic kidney disease, stage 3a - N18.31 (Primary) 2. Essential (primary) hypertension - I10 3. Proteinuria, unspecified - R80.9 4. Renal osteodystrophy - N25.0 5. Secondary hyperparathyroidism, not elsewhere classified - E21.1 6. Hypertension secondary to other renal disorders - I15.1 7. Vitamin D deficiency, unspecified - E55.9 8. Bipolar disorder, unspecified - F31.9 9. Abnormal results of thyroid function studies - R94.6 Plan: * Treatment: * Billing Information: * Visit Code: [id number] Office Visit, Est Pt., Level 5. * Procedure Codes: * Sign off status: Pending * Provider: MD KRIS, F.A.C.P, F.A.S.N. Date: 07/04/2024
--- NOTE | 2024-07-14 12:13 | ECG_ITS ---
Test Date: 2024-07-14 12:30:36 Measurements Intervals [place] Rate: 64 P: 14 AK: 143 QRS: -9 QRSD: 110 T: 46 QT: 405 QTc: 420 Interpretive Statements SINUS RHYTHM INCOMPLETE RIGHT BUNDLE BRANCH BLOCK [90+ ms QRS DURATION, TERMINAL R IN V1/V2, 40+ ms S IN I/aVL/V4/V5/V6] BORDERLINE ECG No previous ECG available for comparison Electronically Signed On 07-14-2024 15:42:33 CDT by Arturo Cameron M.D.
[2024-07-14 12:16] LABS: Glucose Point of Care 147 mg/dl (65-105)
[2024-07-14 12:24] LABS: Basophils Absolute Auto 0.1 K/mm3 (0.0-0.1); Basophils Percent Auto 1.7 % (0.2-1.2); Eosinophils Absolute Auto 0.1 K/mm3 (0-0.3); Eosinophils Percent Auto 1.9 % (0-4.4); Hematocrit 40.5 % (42.0-52.0); Hemoglobin 13.2 g/dL (14.0-18.0); Immature Granulocyte Absolute 0.03 K/mm3 (0.00-0.031); Immature Granulocyte Percent A 0.7 % (0-0.5); Lymphocytes Absolute Auto 1.21 K/mm3 (0.9-3.2); Lymphocytes Percent Auto 29.1 % (18.3-44.2); Mean Corpuscular HGB Conc 32.6 g/dl (32-36); Mean Platelet Volume 9.6 fl (7.4-10.4); Monocytes Absolute Auto 0.4 K/mm3 (0.1-0.6); Monocytes Percent Auto 9.1 % (2.6-8.5); Neutrophils Absolute Auto 2.4 K/mm3 (1.3-6.7); Neutrophils Percent Auto 57.5 % (45.5-73.1); Platelet Count Result 244 k/mm3 (150-375); Red Blood Count 4.55 M/mm3 (4.6-6.20); Red Cell Distribution Width 13.7 % (11.5-14.5); White Blood Count 4.2 K/mm3 (4.5-10.0)
[2024-07-14 12:25] LABS: Estimated Glomerular Filt Rate > 60
[2024-07-14 12:35] LABS: INR 1.1; Prothrombin Time 14.4 Seconds (11.1-14.7)
[2024-07-14 12:52] LABS: Alanine Aminotransferase 14 U/L (6-50); Albumin Level 4.6 g/dL (3.5-5.1); Alkaline Phosphatase 82 U/L (38-126); Anion Gap 12 mmol/L (4-12); Aspartate Amino Transferase 20 U/L (17-59); Bilirubin,Total 0.4 mg/dL (0.2-1.3); Blood Urea Nitrogen 16 mg/dL (9-20); Calcium 9.7 mg/dL (8.4-10.2); Carbon Dioxide 24 mmol/L (22-30); Chloride 104 mmol/L (98-107); Estimated CRCL calculation 57 ml/min; Estimated Glomerular Filt Rate > 60; Glucose 156 mg/dL (65-110); Potassium 4.7 mmol/L (3.4-5.0); Sodium 140 mmol/L (137-145)
[2024-07-14 13:03] LABS: Troponin I < 0.012 ng/mL (0.000-0.034)
--- NOTE | 2024-07-14 13:26 | ED_ITS ---
HPI - Neuro Symptoms/Deficit General Chief Complaint: Suspected CVA Stated Complaint: Facial drooping/left arm tingling x 30 min Time Seen by Provider: 07/14/24 12:21 History of Present Illness HPI Narrative: 63-year-old male with a history of anticoagulation from prior DVT. He is on Eliquis b.i.d. patient presents to the emergency depart with left-sided facial droop and left-sided tingling for approximately 30 minutes duration. Last known well 11:50 a.m.. He woke up in his normal state of health, no symptoms. His noticed that he started having some facial asymmetry and then patient started reporting left arm tingling. Both which have significantly improved since he arrived to the emergency department. He has no facial asymmetry at this time and only mild decrease in sensation to his left upper extremity that ranges from the shoulder to the elbow region but does not go distally. No weakness, no ataxia in the arms or legs, no sensory deficits elsewhere, no visual deficits. NIH Stroke Scale of 1. CT scan CT angiography scan were ordered. Stroke protocol activated. He is already on anticoagulation with Eliquis and does not take any other anticoagulation. No chest pain, back pain, shortness a breath, abdominal pain, nausea, vomiting, vision changes or vertigo. Related Data Home Medications ?Medication ?Instructions ?Recorded ?Confirmed ?Last Taken ?Type olanzapine 20 mg tablet 20 mg DAILY 04/29/19 03/24/23 Unknown History pravastatin 40 mg tablet 40 mg DAILY 04/29/19 03/24/23 Unknown History famotidine 20 mg tablet mg 01/14/23 Unknown History tamsulosin 0.4 mg capsule 0.4 mg PO EVERY OTHER DAY 01/14/23 03/24/23 Unknown History Allergies Allergy/AdvReac Type Severity Reaction Status Date / Time Penicillins Allergy Unknown RASH Verified 07/14/24 14:26 Review of Systems 2 Review of Systems: As reviewed above in HPI [facility] Past Medical History Medical History Bipolar disorder Chronic kidney disease Family History Family History Other Family history of coronary artery disease Family history of osteoarthritis Hypertension Social History Social History Smoking status: Never smoker Alcohol intake: never Gender identity (if verbalized by the patient): Male Exam 2 Narrative: GENERAL: [Well-appearing, well-nourished, and in no acute distress.] HEAD: [Normocephalic, atraumatic.] EYES: [PERRLA and EOMI.] ENT: Nares clear, no rhinorrhea or epistaxis. Mucous membranes moist. Poor dentition NECK: Supple. CHEST: [Clear to auscultation. No respiratory distress.] HEART: [Regular rate and rhythm]. No murmur heard. [Normal peripheral pulses.] ABDOMEN: [Soft, nondistended], [nontender], [No rigidity or guarding] EXTREMITIES: Normal range of motion. [No edema.] SKIN: Warm, dry, no rash. NEURO: [No focal deficits]. Alert and oriented [x3.] NIH stroke scale 1 for subjective paresthesias in the left arm. No facial droop appreciated, no facial asymmetry, slurring of speech, ataxia in the arms or legs, visual deficits. No weakness in the arms or legs, no drift. PSYCH: [Normal mood and affect.] Course Vital Signs Vital signs: Vital Signs Pulse Rate 65 07/14/24 12:10 Respiratory Rate 16 07/14/24 12:10 Blood Pressure 164/83 H 07/14/24 12:10 Pulse Oximetry 99 07/14/24 12:10 Temperature 36.6 C 07/14/24 14:45 Pulse Rate 64 07/14/24 14:45 Respiratory Rate 19 07/14/24 14:45 Blood Pressure 146/86 H 07/14/24 14:45 Pulse Oximetry 100 07/14/24 14:45 MDM - Neuro Symptoms/Deficit MDM Narrative Medical decision making narrative: 63-year-old male with history of hypertension and previous DVT on chronic anticoagulation with Eliquis. Presents today with signs and symptoms of a potential ischemic stroke. Workup in his normal state of health and approximately 11:50 a.m. noticed that he had left-sided facial droop and left- sided numbness in his arm. Came to the ER for evaluation, facial asymmetry has since resolved and his numbness has improved to just subjective pins and needles in his left upper extremity. NIH Stroke Scale of 1 for subjective paresthesias otherwise unremarkable neurological workup. He is slightly hypertensive but not severe range. Normal vital signs otherwise. Stroke was activated and he had a CT scan and CT angiography was head neck. Laboratory studies and cardiac workup was ordered. He is already on anticoagulation with Eliquis and took his morning dose. Not a candidate for thrombolytics therapy based on those risk factors at this time. CT noncontrast shows no acute intracranial hemorrhage. CT angiography shows no acute ischemic disease or occlusive event. Laboratory studies were largely unremarkable. Negative troponin. EKG without any significant findings. No ectopy or arrhythmia. Spoke to the [facility] transfer line as we do not have a neurologist to admit the patient with today. Recommendations to start high-intensity statin, obtain MRI imaging and echocardiogram while he is on a wait list for transfer. They do not have any available beds on Neurology or Neuro tele at this time. Accepting physician is Dr. Dean. Spoke to the hospitalist here currently being covered by the midlevel provider Shirley who will try and see if he can be accepted here pending transfer. Patient and family made aware of the plan and comfortable with current management. Laboratory studies showed no leukocytosis or anemia. Normal platelet count. Normal coagulation panel. Negative troponin, normal glucose, normal LFTs and renal function panel. Chest x-ray without any acute disease. EKG shows sinus rhythm and incomplete right bundle branch block. I went and re-evaluated the patient and he had complete resolution of his symptoms with an NIH stroke scale 0 at this time. I was made aware by the hospitalist team that he can be accepted here pending transfer however upon completion of the orders an MRI imaging being placed I was called by [facility] and they have a bed ready for him so transfer was initiated rather than admission. Patient was made aware of the plan and comfortable with transfer at this time. ALS ambulance was arranged. Patient did receive atorvastatin and currently on Eliquis therapy from the morning. Medical Records Attestation: I reviewed the patient's medical records. Lab Data Attestation: I reviewed the patient's lab results. 07/14/24 12:15 07/14/24 12:21 Labs: Lab Results 07/14/24 07/14/24 07/14/24 Range/Units 12:14 12:15 12:21 WBC 4.2 L (4.5-10.0) K/mm3 RBC 4.55 L (4.6-6.20) M/mm3 Hgb 13.2 L (14.0-18.0) g/dL Hct 40.5 L (42.0-52.0) % MCV 89.0 (80-100) fl MCH 29.0 (26-34) pg MCHC 32.6 (32-36) g/dl RDW 13.7 (11.5-14.5) % Plt Count 244 (150-375) k/mm3 MPV 9.6 (7.4-10.4) fl Immature Gran % (Auto) 0.7 H (0-0.5) % Neut % (Auto) 57.5 (45.5-73.1) % Lymph % (Auto) 29.1 (18.3-44.2) % [place] % (Auto) 9.1 H (2.6-8.5) % Eos % (Auto) 1.9 (0-4.4) % Baso % (Auto) 1.7 H (0.2-1.2) % Lymph # (Auto) 1.21 (0.9-3.2) K/mm3 [place] # (Auto) 0.4 (0.1-0.6) K/mm3 Eos # (Auto) 0.1 (0-0.3) K/mm3 Baso # (Auto) 0.1 (0.0-0.1) K/mm3 Abs Immat Gran (auto) 0.03 (0.00-0.031) K/mm3 Absolute Neuts (auto) 2.4 (1.3-6.7) K/mm3 Absolute Nucleated RBC 0.000 (0.0-0.012) K/mm3 Nucleated RBC % 0.0 (0.0-0.2) % PT 14.4 (11.1-14.7) Seconds INR 1.1 APTT 28.0 (22.3-36.8) Seconds Sodium 140 (137-145) mmol/L Potassium 4.7 (3.4-5.0) mmol/L Chloride 104 (98-107) mmol/L Carbon Dioxide 24 (22-30) mmol/L Anion Gap 12 (4-12) mmol/L BUN 16 (9-20) mg/dL Creatinine 1.13 1.20 (0.7-1.3) mg/dL Estim Creat Clear Calc 57 Not Reportable ml/min Estimated GFR > 60 > 60 (59 - ) Glucose 156 H (65-110) mg/dL POC Capillary Glucose 147 H (65-105) mg/dl Calcium 9.7 (8.4-10.2) mg/dL Total Bilirubin 0.4 (0.2-1.3) mg/dL AST 20 (17-59) U/L ALT 14 (6-50) U/L Alkaline Phosphatase 82 (38-126) U/L Troponin I < 0.012 (0.000-0.034) ng/mL Total Protein 8.0 (6.3-8.2) g/dL Albumin 4.6 (3.5-5.1) g/dL Imaging Data Attestation: I personally reviewed and interpreted this imaging study as follows: My impression: Impressions Head CT 07/14/24 12:36 IMPRESSION: 1. Normal brain. Head/Neck CTA 07/14/24 12:48 IMPRESSION: 1. Normal brain. No aneurysm or significant intracranial arterial stenosis 2. 0% stenosis of the proximal internal carotid arteries relative to normal distal artery lumen diameters (NASCET criteria). Chest X-Ray 07/14/24 12:56 IMPRESSION: 1. No acute cardiopulmonary disease. Critical Care Time Critical Care Time Critical Care Time: Yes Total Critical Care Time: 75 Discharge Plan Discharge Clinical Impression: Transient ischemic attack (TIA) Patient Disposition: Acute Care Hospital Condition: Stable Patient Language: Arabic Prescriptions: No Action pravastatin 40 mg tablet 40 mg DAILY olanzapine 20 mg tablet 20 mg DAILY famotidine 20 mg tablet tamsulosin 0.4 mg capsule 0.4 mg PO EVERY OTHER DAY clindamycin HCl 300 mg capsule 300 mg PO Q6H 10 Days Qty: 40 0RF prednisone 20 mg tablet 40 mg PO DAILY 3 Days Qty: 6 0RF clindamycin HCl 300 mg capsule 300 mg PO Q6H 10 Days Qty: 40 0RF Eliquis DVT-PE Treat 30D Start 5 mg (74 tabs) tablets,dose pack See Rx Instructions .ROUTE .COMPLEX Qty: 74 0RF Rx Instructions: orally per package directions Follow-up/Referrals: Tan,Mandi Carias MD [Primary Care Provider] - Time of Disposition: 16:02 Quality NIHSS Nursing Documentation ED NIHSS nursing documentation: reviewed/agree Stroke Date of last known normal: 07/14/24 Time of last known normal: 11:50 Stroke Scale Stroke Scale 1: Stroke scale date:: 07/14/24 Stroke scale time:: 12:30 1a Level of consciousness: alert-0 1b Level of consciousness questions: answers both correctly-0 1c Level of consciousness commands: obeys both correctly-0 2 Best gaze: normal-0 3 Visual: no visual loss-0 4 Facial palsy: normal-0 5a Motor: left arm: no drift-0 5b Motor: right arm: no drift-0 6a Motor: left leg: no drift-0 6b Motor: right leg: no drift-0 7 Limb ataxia: absent-0 8 Sensory: pinprick less sharp-1 9 Best language: no aphasia-0 10 Dysarthria: normal-0 11 Extinction and inattention: no abnormality-0 Level:: 1
[2024-07-14] MEDS: ATORVASTATIN 40 MG TABLET PO (13:57)
--- NOTE | 2024-07-14 14:20 | P.HP_ITS ---
[facility] Past Medical History Medical History Bipolar disorder Chronic kidney disease Family History Family History Other Family history of coronary artery disease Family history of osteoarthritis Hypertension Social History Social History Smoking status: Never smoker Alcohol intake: never Gender identity (if verbalized by the patient): Male Meds Home Medications and Allergies Home Medications ?Medication ?Instructions ?Recorded ?Confirmed ?Type olanzapine 20 mg tablet 20 mg DAILY 04/29/19 03/24/23 History pravastatin 40 mg tablet 40 mg DAILY 04/29/19 03/24/23 History apixaban 5 mg (74 tabs) tablets in See Rx Instructions PO .COMPLEX 12/27/22 Rx a dose pack (Colibri Heart Valve DVT-PE Treat #74 ea 30D Start) clindamycin HCl 300 mg capsule 300 mg PO Q6H 10 days #40 caps 01/14/23 Rx famotidine 20 mg tablet mg 01/14/23 History prednisone 20 mg tablet 40 mg (2 x 20 mg) PO DAILY 3 days 01/14/23 Rx #6 tabs tamsulosin 0.4 mg capsule 0.4 mg PO EVERY OTHER DAY 01/14/23 03/24/23 History clindamycin HCl 300 mg capsule 300 mg PO Q6H 10 days #40 caps 03/24/23 Rx Allergies Allergy/AdvReac Type Severity Reaction Status Date / Time Penicillins Allergy Unknown RASH Verified 07/14/24 14:26 Vital Signs Vital Signs - 24 hr 07/14/24 12:10 07/14/24 12:26 07/14/24 13:56 Pulse Rate 65 70 62 Respiratory Rate 16 16 16 Blood Pressure 164/83 H 164/83 H 126/80 Pulse Oximetry 99 98 H&P: Results Labs Labs: Short CBC 07/14/24 Range/Units 12:15 WBC 4.2 L (4.5-10.0) K/mm3 Hgb 13.2 L (14.0-18.0) g/dL Hct 40.5 L (42.0-52.0) % Plt Count 244 (150-375) k/mm3 [facility] 07/14/24 07/14/24 12:15 12:21 Sodium 140 Potassium 4.7 Chloride 104 Carbon Dioxide 24 BUN 16 Creatinine 1.13 1.20 Glucose 156 H Calcium 9.7 Cardiac Enzymes 07/14/24 Range/Units 12:15 Troponin I < 0.012 (0.000-0.034) ng/mL Liver Function 07/14/24 Range/Units 12:15 Total Bilirubin 0.4 (0.2-1.3) mg/dL AST 20 (17-59) U/L ALT 14 (6-50) U/L Alkaline Phosphatase 82 (38-126) U/L Albumin 4.6 (3.5-5.1) g/dL
== END 2024-07-14 17:18 | disposition short-term general hospital (02) ==
PROVIDERS: Emergency Medicine; Emergency Provider Student in an Organized Health Care Education/Training Program; PCP Family Medicine
DX: G45.9 Transient cerebral ischemic attack, unspecified (principal); N18.9 Chronic kidney disease, unspecified; F31.9 Bipolar disorder, unspecified; Z86.718 Personal history of other venous thrombosis and embolism; Z79.01 Long term (current) use of anticoagulants; Z79.899 Other long term (current) drug therapy
CPT/HCPCS: 36415; 70450; 70496; 70498; 71045; 80053; 82948; 84484; 85025; 85610; 85730; 93005; 99285; A9270; Q9967

== ENCOUNTER 2025-01-20 09:20 | Emergency (ER) | payer MEDICARE, SELFPAY ==
--- NOTE | 2025-01-20 09:26 | ED.DENTAL ---
HPI - Dental/Oral General Chief complaint: Dental/Oral Stated complaint: tooth ache patient presents to the [facility] with complaints of waking up this morning with significant right upper dental care and facial swelling. Patient also noted pain to right upper gums. Patient noted that he did have a filling in place that fell out quite a long time ago but did not give any problems until now. Patient does have he be a dentist noticed he is seeing the [facility]. patient taking Tylenol has had some relief of pain. Denies fever chills, body aches, headache, or dizziness. Related Data Home Medications ?Medication ?Instructions ?Recorded ?Confirmed ?Last Taken ?Type olanzapine 20 mg tablet 20 mg DAILY 04/29/19 03/24/23 Unknown History pravastatin 40 mg tablet 40 mg DAILY 04/29/19 03/24/23 Unknown History famotidine 20 mg tablet mg 01/14/23 Unknown History tamsulosin 0.4 mg capsule 0.4 mg PO EVERY OTHER DAY 01/14/23 03/24/23 Unknown History Allergies Allergy/AdvReac Type Severity Reaction Status Date / Time Penicillins Allergy Unknown RASH Verified 01/20/25 09:24 Review of Systems Constitutional: Constitutional: Reports as per HPI, Denies chills, Denies fatigue, Denies fever(s) and Denies weakness Eyes: Eyes: Reports no additional eye complaints ENT: Reports as per HPI, Denies vertigo, Denies dizziness and Denies nasal congestion Comments: dental pain Cardiovascular: Cardiovascular: Reports no additional cardiovascular complaints Respiratory: Respiratory: Reports no additional respiratory complaints Gastrointestinal: Gastrointestinal: Reports no additional gastrointestinal complaints Genitourinary: Genitourinary: Reports no additional male genitourinary complaints Musculoskeletal: Musculoskeletal: Reports no additional musculoskeletal complaints Integumentary/Breasts: Skin/Breast: Reports as per HPI Comments: right upper facial swelling Neurologic: Reports as per HPI, Denies vertigo, Denies dizziness, Denies headache(s) and Denies weakness Psychiatric: Psychiatric: Reports no additional psychiatric complaints Endocrine: Endocrine: Reports no additional endocrine complaints Hematologic/Lymphatic: Hematologic/Lymphatic: Reports no additional hematologic/lymphatic complaints Allergic/Immunologic: Allergic/Immunologic: Reports no additional allergic/immunologic complaints [facility] Past Medical History Medical History Bipolar disorder Chronic kidney disease Family History Family History Other Family history of coronary artery disease Family history of osteoarthritis Hypertension Social History Social History Smoking status: Never smoker Alcohol intake: never Gender identity (if verbalized by the patient): Male Exam Const: General: healthy appearing and no acute distress Nutritional Appearance: well nourished Orientation/consciousness: patient oriented x3 Limitations: no limitations HENMT: Head: normal to inspection Ears: external ears normal and TM's normal bilaterally Face/Nose/Sinus: Normal external nose present and Normal nares present Face and sinus: sinus tenderness (right ) maxillary Teeth and gingiva: abnormal tooth and associated gingiva ( Significant right upper dental swelling with abscess) Neck: Neck: normal visual inspection and no lymphadenopathy Resp: Effort & Inspection: normal respiratory effort Auscultation: clear to auscultation bilaterally Cardio: Rate: regular rate Rhythm: regular rhythm Skin: General skin exam: normal color Rashes: no rashes Wounds: no wounds Neuro: General: patient oriented x3 Speech: normal speech Gait exam (Neuro): Normal gait present Psych: Mental Status: mental status grossly normal Affect: normal affect Attitude: cooperative Course Course Level of Care: Express Care Visit MDM - Dental/Oral MDM Narrative Medical decision making narrative: significant gingival swelling on exam with significant cheek swelling. Will place patient antibiotics in short term prednisone to help with swelling. patient to call dentist tomorrow. Educated patient on several signs and symptoms that would need ER evaluation The patient was evaluated by myself in the express care. History is obtained from patient who is an independent historian and physical exam was performed. Available medical records were reviewed at this time. Exam findings show no acute concerns or changes; patient is non-toxic appearing and is in no distress. Patient is appropriate for outpatient treatment and follow-up. I have evaluated and discussed social determinants of health with the patient that could potentially impact subsequent diagnosis and treatment plans. Differential diagnosis and treatment plan were discussed with the patient. Patient agrees with discussion and after shared medical decision making agrees with plan of care. All questions were answered to the patient's satisfaction. Differential Diagnosis Differential diagnosis: Likely gingival abscess, dental caries, toothache, dental abscess and aphthous ulcer Medical Records Attestation: I reviewed the patient's medical records. Discharge Plan Discharge Clinical Impression: Dental abscess Patient Disposition: Home Condition: Stable Instructions: Antibiotic Form, Dental Abscess (ED), Mouth Care (ED) Additional Instructions: Finish the entire course of antibiotics & use the mouthwash. After every time you eat be sure to use salt water gargles. Apply ice to face to help with pain. Dental problems can lead to other problems, so this is important to follow up with a dental provider. To solve the problem, You need to follow up with a dental provider, a list has been given to you. Please follow up with your dentist as soon as possible. Take Tylenol as prescribed for pain and to decrease swelling- take this with food Follow up with a Primary Care Provider (PCP) about medical needs. A PCP can help keep you healthy by preventive medicine and screening. Return to Urgent care or go to the ER for New or worsening symptoms. Patient Language: Puerto Rican Prescriptions: New clindamycin HCl [Cleocin HCl] 300 mg capsule 300 mg PO Q8H Qty: 30 0RF prednisone 50 mg tablet 50 mg PO DAILY Qty: 5 0RF No Action pravastatin 40 mg tablet 40 mg DAILY olanzapine 20 mg tablet 20 mg DAILY famotidine 20 mg tablet tamsulosin 0.4 mg capsule 0.4 mg PO EVERY OTHER DAY Eliquis DVT-PE Treat 30D Start 5 mg (74 tabs) tablets,dose pack See Rx Instructions .ROUTE .COMPLEX Qty: 74 0RF Rx Instructions: orally per package directions Follow-up/Referrals: Rashawn,Erika Cunningham NP [Primary Care Provider, Unknown] Time of Disposition: 09:38
[2025-01-20 09:29] VITALS: BP 91/69; PULSE 118; RESP 16; TEMP 36.9; O2SAT 97
== END 2025-01-20 09:44 | disposition home or self-care (01) ==
PROVIDERS: Emergency Provider Nurse Practitioner Family; PCP Nurse Practitioner Family
DX: K04.7 Periapical abscess without sinus (principal); F31.9 Bipolar disorder, unspecified; N18.9 Chronic kidney disease, unspecified
CPT/HCPCS: 99213; G0463